=== PATIENT | female | born 1985 | race Two or more races ===

== ENCOUNTER → 2018-12-09 | Outpatient (CLI) | payer BC ==
[2018-12-09 13:06] LABS: Basophils # (auto) 0 uL; Basophils % (auto) 0.5 % (0.0-2.0); Eosinophils # (auto) 0.1 uL; Eosinophils % (auto) 1.3 % (0.0-7.0); Hematocrit 40.1 % (36.0-46.0); Hemoglobin 13.7 g/dL (12.2-16.2); Lymphocytes # (auto) 1.1 uL; Lymphocytes % (auto) 12.3 % (10.0-50.0); Mean Corpuscular Hemoglobin 29.8 pg (28.0-32.0); Mean Corpuscular Hgb Conc. 34.1 g/dL (32.0-36.0); Mean Corpuscular Volume 87.4 fL (80.0-100.0); Monocytes # (auto) 0.6 uL; Monocytes % (auto) 7.5 % (0.0-12.0); Neutrophils # (auto) 6.8 uL; Neutrophils % (auto) 78.4 % (37.0-80.0); Platelet Count (auto) 240 10^3/uL (140-450); Red Blood Cells 4.59 10^6/uL (4.0-5.20); Red Cell Distribution Width 14.1 % (11.8-14.3); White Blood Cell 8.6 10^3/uL (4.4-10.8)
[2018-12-09 13:39] LABS: Cannabinoid Screen, Urine NEGATIVE (NEGATIVE)
[2018-12-09 13:42] LABS: Alcohol, Urine < 3.0 mg/dL (0-5); Amphetamine Screen, Urine NEGATIVE (NEGATIVE); Barbiturate Scree,Urine NEGATIVE (NEGATIVE); Benzodiazephine Screen, Urine NEGATIVE (NEGATIVE); Cocaine Screen, Urine NEGATIVE (NEGATIVE); Opiate Scree,Urine NEGATIVE (NEGATIVE); Phencyclidine Screen, Urine NEGATIVE (NEGATIVE)
[2018-12-10 07:06] LABS: RPR Non Reactive (Non Reactive)
== END | disposition home or self-care (01) ==
LOC: LAB 11:34
PROVIDERS: ATTEND Obstetrics & Gynecology
DX: Z34.01 Encounter for supervision of normal first pregnancy, first trimester (principal); Z72.51 High risk heterosexual behavior; Z3A.12 12 weeks gestation of pregnancy
CPT/HCPCS: 36415; 80307; 83036; 85025; 86592; 86703; 86762; 86850; 86900; 86901; 87086; 87340

== ENCOUNTER → 2019-03-02 | Outpatient (CLI) | payer BC | END | disposition home or self-care (01) | LOC: LAB 12:59 | PROVIDERS: ATTEND Obstetrics & Gynecology | DX: Z34.02 Encounter for supervision of normal first pregnancy, second trimester (principal); Z72.51 High risk heterosexual behavior; Z3A.22 22 weeks gestation of pregnancy ==

== ENCOUNTER → 2019-04-09 | Outpatient (CLI) | payer BC ==
[2019-04-09 09:11] LABS: Basophils # (auto) 0 uL; Basophils % (auto) 0.4 % (0.0-2.0); Eosinophils # (auto) 0.1 uL; Eosinophils % (auto) 1.1 % (0.0-7.0); Hematocrit 37.1 % (36.0-46.0); Hemoglobin 12.5 g/dL (12.2-16.2); Lymphocytes # (auto) 1.1 uL; Mean Corpuscular Hemoglobin 29.8 pg (28.0-32.0); Mean Corpuscular Hgb Conc. 33.7 g/dL (32.0-36.0); Mean Corpuscular Volume 88.4 fL (80.0-100.0); Monocytes # (auto) 0.6 uL; Monocytes % (auto) 5.7 % (0.0-12.0); Neutrophils # (auto) 8.1 uL; Neutrophils % (auto) 81.8 % (37.0-80.0); Platelet Count (auto) 221 10^3/uL (140-450); Red Cell Distribution Width 13.5 % (11.8-14.3)
== END | disposition home or self-care (01) ==
LOC: LAB 08:39
PROVIDERS: ATTEND Obstetrics & Gynecology
DX: O99.810 Abnormal glucose complicating pregnancy (principal); Z3A.27 27 weeks gestation of pregnancy
CPT/HCPCS: 36415; 82951; 85025

== ENCOUNTER → 2019-06-01 | Outpatient (CLI) | payer BC ==
[2019-06-01 16:28] LABS: Basophils # (auto) 0.1 uL; Basophils % (auto) 0.6 % (0.0-2.0); Eosinophils # (auto) 0.1 uL; Eosinophils % (auto) 1.1 % (0.0-7.0); Hematocrit 38.7 % (36.0-46.0); Hemoglobin 12.8 g/dL (12.2-16.2); Lymphocytes # (auto) 1.2 uL; Lymphocytes % (auto) 10.4 % (10.0-50.0); Mean Corpuscular Hemoglobin 28.4 pg (28.0-32.0); Mean Corpuscular Hgb Conc. 33.2 g/dL (32.0-36.0); Mean Corpuscular Volume 85.6 fL (80.0-100.0); Monocytes % (auto) 8.8 % (0.0-12.0); Neutrophils # (auto) 9.3 uL; Neutrophils % (auto) 79.1 % (37.0-80.0); Nucleated Red Blood Cells % 0.2 %; Platelet Count (auto) 246 10^3/uL (140-450); Red Blood Cells 4.52 10^6/uL (4.0-5.20); Red Cell Distribution Width 13.5 % (11.8-14.3); White Blood Cell 11.8 10^3/uL (4.4-10.8)
[2019-06-03 06:06] LABS: RPR Non Reactive (Non Reactive)
== END | disposition home or self-care (01) ==
LOC: LAB 16:02
PROVIDERS: ATTEND Obstetrics & Gynecology
DX: O23.593 Infection of other part of genital tract in pregnancy, third trimester (principal); Z3A.35 35 weeks gestation of pregnancy
CPT/HCPCS: 36415; 84112; 85025; 86592; 87081

== ENCOUNTER 2019-06-25 02:50 | Inpatient (IN) | payer BC ==
[~2019-06-25] VITALS: Ht 160 cm; Wt 72.6 kg
[2019-06-25] MEDS ORDERED: LACT. RINGERS/OXYTOCIN 20UNITS 1,000 ML IV SCH ×3 (04:18→18:07)
[2019-06-25] MEDS ORDERED: PHISODERM TOP SOLN 240ML BTL TOP PRN (04:30)
[2019-06-25] MEDS ORDERED: DERMOPLAST 60ML BOTTLE TOP PRN (04:30)
[2019-06-25] MEDS ORDERED: PROMETHAZINE HCL 25 MG/ML 1ML IV PRN (04:30)
[2019-06-25] MEDS ORDERED: NALBUPHINE HCL 10 MG/1ml INJECTION IV PRN (04:30)
[2019-06-25] MEDS ORDERED: LIDOCAINE 2%HCL (LOCAL ANESTH.) INJ 20ML MDV ID PRN (04:30)
[2019-06-25] MEDS ORDERED: METHYLERGONOVINE MALEATE 0.2 MG/ML AMP IM PRN (04:30)
[2019-06-25 05:18] LABS: Basophils # (auto) 0.1 uL; Basophils % (auto) 0.6 % (0.0-2.0); Eosinophils # (auto) 0.1 uL; Eosinophils % (auto) 0.7 % (0.0-7.0); Hematocrit 39.3 % (36.0-46.0); Hemoglobin 12.9 g/dL (12.2-16.2); Lymphocytes # (auto) 0.8 uL; Lymphocytes % (auto) 6.6 % (10.0-50.0); Mean Corpuscular Hgb Conc. 32.9 g/dL (32.0-36.0); Mean Corpuscular Volume 85.2 fL (80.0-100.0); Monocytes # (auto) 0.8 uL; Monocytes % (auto) 6.4 % (0.0-12.0); Neutrophils # (auto) 10.5 uL; Neutrophils % (auto) 85.7 % (37.0-80.0); Platelet Count (auto) 219 10^3/uL (140-450); Red Blood Cells 4.61 10^6/uL (4.0-5.20); Red Cell Distribution Width 14.4 % (11.8-14.3); White Blood Cell 12.3 10^3/uL (4.4-10.8)
[2019-06-25 05:35] LABS: INR < 0.93 (0.9-1.15); Partial Thromboplastin Time 29.3 sec (23.64-32.05)
[2019-06-25 05:36] LABS: Albumin 2.9 g/dL (3.4-5.0); BUN/Creatinine Ratio 10.6; Calcium 8.7 mg/dL (8.5-10.1); Potassium 3.7 mmol/L (3.5-5.1)
[2019-06-25 05:39] LABS: Bilirubin, Total 0.3 mg/dL (0.2-1.0)
[2019-06-25] MEDS: WITCH HAZEL-GLYCERIN PAD TOP PRN (05:41)
[2019-06-25] MEDS: LACTATED RINGER'S 1,000 ML IV SCH ×2 (05:42→10:32)
[2019-06-25 06:21] LABS: Urine Amorphous Crystal FEW /hpf (None Seen); Urine Bacteria FEW /hpf (None Seen); Urine Blood 2+ /uL (Negative); Urine Specific Gravity 1.009 (1.001-1.035); Urine WBC 82 /hpf (0 - 5)
[2019-06-25] MEDS ORDERED: PREN-96 PO (06:32)
[2019-06-25] MEDS ORDERED: fentaNYL CITRATE 100 MCG/2 ML VL IV ONE (07:15)
[2019-06-25] MEDS ORDERED: NALOXONE HCL 0.4 MG/ML VIAL IV ONE (07:15)
[2019-06-25] MEDS ORDERED: LIDOCAINE HCL 2 %PF INJ 10ML AMP IJ ONE (07:15)
[2019-06-25] MEDS ORDERED: ePHEDrine SULFATE 50 MG/ML AMP IV ONE (07:15)
[2019-06-25] MEDS ORDERED: fentaNYL W ROPIVACAINE 150 ML EPI SCH (07:15)
[2019-06-25] MEDS ORDERED: TERBUTALINE SULFATE 1 MG/ML 1ML VIAL SC PRN (10:15)
[2019-06-25] MEDS ORDERED: SODIUM CHLORIDE 0.9% 300 ML IUPC ONE (11:04)
[2019-06-25] MEDS ORDERED: SODIUM CHLORIDE 0.9% 1,000 ML IUPC SCH ×2 (11:04→11:06)
[2019-06-25] MEDS: ceFAZolin 1GM/50ML 50 ML IV SCH ×2 (13:07→20:38)
[2019-06-25] MEDS: ACETAMINOPHEN 325 MG TAB PO PRN ×2 (17:37→22:39)
[2019-06-25 19:00] VITALS: BP 114/60
--- NOTE | 2019-06-25 19:00 | NUR ---
Ambulation: Fundal check performed and vaginal bleeding assessed prior to ambulation. Pt assisted to side of bed to dangle and VS taken and stable. Pt denies dizziness. Patient OOB with standby assistance by RN. Patient ambulated to bathroom with steady gait. Patient able to void without difficulty. [facility] teaching provided with returned demonstration by patient. Clean gown provided and bed linen changed. Patient ambulated back to bed with steady gait and no distress noted.
[2019-06-25 20:15] VITALS: BP 117/60
--- NOTE | 2019-06-25 21:50 | NUR ---
[facility] CALLED AND NOTIFIED DR VARNER OF [facility]. NEW ORDERS FOR TELE PSYCH AND SS CONSULT.
--- NOTE | 2019-06-25 22:30 | NUR ---
CALLED TELE PSYCH TO NOTIFY OF CONSULT. AWAITING CALL BACK.
[2019-06-25 23:10] VITALS: BP 105/56
[2019-06-26 02:59] VITALS: BP 102/55
[2019-06-26] MEDS: ceFAZolin 1GM/50ML 50 ML IV SCH ×2 (04:27→13:21)
[2019-06-26] MEDS: ACETAMINOPHEN 325 MG TAB PO PRN ×4 (04:38→21:08)
--- NOTE | 2019-06-26 05:50 | NUR ---
CALLS UNIT WITH UPDATE ON TELE PYSCH CONSULT. PHYSICIAN SPEAKS WITH RINA COLLINS RN AND SUMMARIZES CONSULTS AND STATES NO DEPRESSIVE EPISODE BUT POSITIVE SCORES ARE MOST LIKELY DUE TO MOTHERS RECENT . RECOMMENDS GRIEF GROUP SUPPORT UPON DISCHARGE AND REPEAT EPDS AT FIRST VISIT. PATIENT CLEAR FOR DISCHARGE PER .
--- NOTE | 2019-06-26 06:25 | NUR ---
Report received on stable pt by Sadaf Carlson. Assumed care. Addendum: 06/26/19 at 0849 by Trish Garcia RN Amended: Links added.
[2019-06-26 06:57] VITALS: BP 120/62
[2019-06-26 07:06] LABS: RPR Non Reactive (Non Reactive)
[2019-06-26 11:40] VITALS: BP 95/54
[2019-06-26] MEDS: WITCH HAZEL-GLYCERIN PAD TOP PRN (14:37)
[2019-06-26 15:34] VITALS: BP 109/84
[2019-06-26] MEDS ORDERED: DOCUSATE CALCIUM 240 MG CAP PO SCH (15:45)
--- NOTE | 2019-06-26 18:05 | NUR ---
Report given to Sadaf Carlson RN on stable pt. Relinquished care. Addendum: 06/26/19 at 1825 by Trish Garcia RN Amended: Links added.
[2019-06-26 19:00] VITALS: BP 107/53
--- NOTE | 2019-06-26 19:30 | NUR ---
IV site red and swollen, tender to touch. called and updated on patient 24hour vital signs and afebrile temps. Orders received to d/c IV at this time. IV DC'd with sterile technique, catheter fully intact. Pressure dressing applied to site. Patient tolerated procedure well.
[2019-06-26 23:00] VITALS: BP 109/61
[2019-06-27 03:00] VITALS: BP 100/64
[2019-06-27] MEDS: ACETAMINOPHEN 325 MG TAB PO PRN (05:37)
[2019-06-27 07:00] VITALS: BP 120/60
--- NOTE | 2019-06-27 08:00 | NUR ---
Dr Perez made rounds with RN. SBAR given. See orders.
--- NOTE | 2019-06-27 10:38 | NUR ---
[facility] family preservation caseworker educational coordinator paged regarding high post depression scale. Patient cleared per tele psych. Stable for discharge.
[2019-06-27 11:00] VITALS: BP 125/88
--- NOTE | 2019-06-27 11:10 | NUR ---
Informed pt of social service consult regarding high depression scale. Verbalized understanding. Requested to go home and decline the social service consult. Stated she feels good and that the sadness is related to the sudden of her mother only a week ago. Pt has a strong support system from and relatives. Educated on need to rest and take help from others, take time for herself, and to not over work herself. Verbalized understanding. Significant other stated he has taken off of work and will be assisting her day and night.
--- NOTE | 2019-06-27 11:15 | NUR ---
Discharge: Discharge instructions given as ordered. Pt encouraged to follow up with [facility] [facility] as instructed. All questions and concerns addressed. Patient verbalized understanding. Medication reconciliation completed and copy given to patient. All required/requested vaccines given and copies of vaccinations given to patient. Patient encouraged to prepare to depart unit.
--- NOTE | 2019-06-27 12:40 | NUR ---
Discharge: Patient taken to vehicle via ambulation with all personal belongings, accompanied by staff and family member. No distress noted at time of departure, no adverse changes in status since initial assessment.
== END 2019-06-27 11:00 | disposition home or self-care (01) | DRG 807 ==
LOC: LDRP 02:50 → OBSVTOIN 02:50 → LDRP 05:22
PROVIDERS: ADMIT Specialist; ATTEND Specialist
PROC: 10D07Z6 Extraction of Products of Conception, Vacuum, Via Natural or Artificial Opening (ICD-10-PCS; principal; 2019-06-25)
PROC: 0KQM0ZZ Repair Perineum Muscle, Open Approach (ICD-10-PCS; 2019-06-25)
PROC: 3E0R3BZ Introduction of Anesthetic Agent into Spinal Canal, Percutaneous Approach (ICD-10-PCS; 2019-06-25)
PROC: 00HU33Z Insertion of Infusion Device into Spinal Canal, Percutaneous Approach (ICD-10-PCS; 2019-06-25)
PROC: 0W8NXZZ Division of Female Perineum, External Approach (ICD-10-PCS; 2019-06-25)
DX: O77.0 Labor and delivery complicated by meconium in amniotic fluid (principal); Z37.0 Single live birth; F53.0 Postpartum depression; O70.1 Second degree perineal laceration during delivery; Z3A.38 38 weeks gestation of pregnancy
CPT/HCPCS: 36415; 51702; 59025; 59409; 62282; 80053; 81001; 81002; 84112; 85025; 85610; 85730; 86592; 86850; 86900; 86901; 94760; 94762; 96361; 96366; 96372; G0378; J0690; J2590; J3010

== ENCOUNTER → 2019-09-10 | Outpatient (CLI) | payer BC ==
[~2019-09-10] MED LIST: PREN-96 PO
[2019-09-10 11:36] LABS: Basophils # (auto) 0.1 uL; Eosinophils # (auto) 0.1 uL; Monocytes # (auto) 0.6 uL
[2019-09-10 11:44] LABS: Basophils % (auto) 0.9 % (0.0-2.0); Hematocrit 41.9 % (36.0-46.0); Hemoglobin 13.6 g/dL (12.2-16.2); Lymphocytes % (auto) 14.1 % (10.0-50.0); Mean Corpuscular Hemoglobin 26.5 pg (28.0-32.0); Mean Corpuscular Hgb Conc. 32.6 g/dL (32.0-36.0); Mean Corpuscular Volume 81.3 fL (80.0-100.0); Monocytes % (auto) 9.4 % (0.0-12.0); Neutrophils # (auto) 5.1 uL; Neutrophils % (auto) 73.6 % (37.0-80.0); Platelet Count (auto) 300 10^3/uL (140-450); Red Blood Cells 5.15 10^6/uL (4.0-5.20); Red Cell Distribution Width 14.7 % (11.8-14.3); White Blood Cell 6.9 10^3/uL (4.4-10.8)
[2019-09-10 11:58] LABS: Potassium 3.5 mmol/L (3.5-5.1)
[2019-09-10 12:05] LABS: Albumin 3.7 g/dL (3.4-5.0); BUN/Creatinine Ratio 15.3; Bilirubin, Total 0.2 mg/dL (0.2-1.0); Calcium 9.2 mg/dL (8.5-10.1)
== END | disposition home or self-care (01) ==
LOC: LAB 10:37
PROVIDERS: ATTEND Internal Medicine
DX: O99.345 Other mental disorders complicating the puerperium (principal); F53.0 Postpartum depression; Z80.3 Family history of malignant neoplasm of breast; Z88.8 Allergy status to other drugs, medicaments and biological substances
CPT/HCPCS: 36415; 80053; 84439; 84443; 85025